=== PATIENT | female | born 1940 | race Caucasian/White ===

== ENCOUNTER → 2017-04-26 | Outpatient (CLI) | payer MEDICARE, OTHER ==
[~2017-04-26] MED LIST: CENTTAB PO; COUM1TAB19 PO; COUM2.5T11 PO; FISH1000 PO; FURO20TA2 PO; GLUC500C5 PO; KLOR1TAB69 PO; LEVO150T7 PO; PRAV40TA2 PO; PROBCAP4 PO; PROP225T PO; SPIR25TA2 PO; TYLE325T5 PO; VITA1CAP2 PO
--- NOTE | 2017-04-26 14:16 | REPMRS ---
Patient History The patient states she had a clinical breast exam in 04/2017. Family history of breast cancer in mother at age 50 or over. Benign stereotatic breast biopsy of the left breast, June 03, 2010. Digital Woman Screen Mammo: April 26, 2017 - Exam #: [id number] Bilateral CC and MLO view(s) were taken. Technologist: Alisa Shah, Technologist Prior study comparison: April 27, 2016, digital woman screen mammo performed at [facility]. August 06, 2014, digital woman screen mammo performed at [facility]. August 01, 2013, digital woman screen mammo performed at [facility]. FINDINGS: The breast tissue is heterogeneously dense. This may lower the sensitivity of mammography. There is a needle biopsy marker clip in the left breast. There is a pacemaker power plant projecting over the left axilla on the MLO view.There is a moderate amount of heterogeneously dense fibroglandular tissue which is fairly symmetric. There is no interval development of dominant mass, architectural distortion, or clustered microcalcification typical of malignancy. There has been no change in the appearance of the mammogram from the prior studies. ASSESSMENT: BI-RADS/ACR category 2 mammogram. Benign finding(s). Recommendation Routine screening mammogram of both breasts in 1 year (for women over age 40). This mammogram was interpreted with the aid of an FDA-approved computer-aided dectection system. Electronically Signed By: Sam Pickett MD 04/26/17 [id number]
== END ==
LOC: M WHC 12:40
PROVIDERS: ATTEND Nurse Practitioner Women's Health
DX: Z12.31 Encounter for screening mammogram for malignant neoplasm of breast (principal); Z92.89 Personal history of other medical treatment; Z80.3 Family history of malignant neoplasm of breast
CPT/HCPCS: G0202; G0463

== ENCOUNTER → 2020-05-05 | Outpatient (REF) | payer MEDICARE, OTHER ==
[~2020-05-05] MED LIST changes: -COUM2.5T11 PO; +COUM2.5T17 PO; +SPIR-10 PO; -SPIR25TA2 PO; +VITA-183 PO; -VITA1CAP2 PO
== END ==
LOC: M LAB REF 12:20
PROVIDERS: ATTEND Physician Assistant
DX: N39.0 Urinary tract infection, site not specified (principal)

== ENCOUNTER → 2021-04-03 | Outpatient (REF) | payer MEDICARE, OTHER | LOC: M LAB REF 15:49 | PROVIDERS: ATTEND Physician Assistant | DX: R30.0 Dysuria (principal) ==

== ENCOUNTER → 2021-06-06 | Outpatient (REF) | payer MEDICARE, OTHER | LOC: M WUC 19:02 | PROVIDERS: ATTEND Physician Assistant | DX: N39.0 Urinary tract infection, site not specified (principal) ==

== ENCOUNTER → 2021-07-01 | Outpatient (REF) | payer MEDICARE, OTHER | LOC: M LAB REF 11:26 | PROVIDERS: ATTEND Physician Assistant | DX: R30.0 Dysuria (principal) ==

== ENCOUNTER → 2021-07-26 | Outpatient (REF) | payer MEDICARE, OTHER | LOC: M WUC 18:08 | PROVIDERS: ATTEND Physician Assistant | DX: R30.0 Dysuria (principal) ==

== ENCOUNTER → 2022-05-06 | Outpatient (REF) | payer MEDICARE, OTHER | LOC: M WUC 15:51 | PROVIDERS: ATTEND Physician Assistant | DX: N39.0 Urinary tract infection, site not specified (principal) ==

== ENCOUNTER → 2022-06-06 | Outpatient (REF) | payer MEDICARE, OTHER | LOC: M WUC 17:39 | PROVIDERS: ATTEND Physician Assistant | DX: N39.0 Urinary tract infection, site not specified (principal) ==

== ENCOUNTER → 2022-07-25 | Outpatient (REF) | payer MEDICARE, OTHER | LOC: M WUC 19:18 | PROVIDERS: ATTEND Student in an Organized Health Care Education/Training Program | DX: N39.0 Urinary tract infection, site not specified (principal) ==

== ENCOUNTER → 2023-07-31 | Outpatient (REF) | payer MEDICARE, OTHER | LOC: M WUC 10:36 | PROVIDERS: ATTEND Student in an Organized Health Care Education/Training Program | DX: R30.0 Dysuria (principal) ==

== ENCOUNTER 2024-05-11 13:46 | Inpatient (IN) | payer MEDICARE, OTHER ==
[~2024-05-11] VITALS: Ht 157.5 cm; Wt 70.8 kg
[2024-05-11] MEDS ORDERED: MIRALAX *UNIT DOSE* 17GM PACKET PO PRN (15:40)
[2024-05-11] MEDS ORDERED: ONDANSETRON 4MG TAB PO PRN (15:40)
[2024-05-11] MEDS ORDERED: BISACODYL 10MG SUPP PR PRN (15:40)
[2024-05-11] MEDS ORDERED: SPIRONOLACTONE 25 MG TAB PO SCH (17:00)
[2024-05-11 19:15] VITALS: BP 159/69; TEMP 97.2; O2SAT 94
[2024-05-11] MEDS: APIXABAN 5 MG TAB (ELIQUIS) PO SCH (21:00)
[2024-05-11] MEDS: GABAPENTIN 100 MG CAP PO SCH (21:00)
[2024-05-11] MEDS: ACETAMINOPHEN 500 MG TAB PO SCH (21:00)
[2024-05-11] MEDS: DOCUSATE SODIUM 100MG CAPSULE PO SCH (21:45)
[2024-05-11] MEDS: SENNA 8.6 MG TAB (SENOKOT) PO SCH (21:45)
[2024-05-11] MEDS: oxyCODONE 5MG TAB PO PRN (21:45)
[2024-05-11] MEDS ORDERED: MELO15TA28 PO (23:00)
[2024-05-11] MEDS ORDERED: DILT120C89 PO (23:00)
[2024-05-11] MEDS ORDERED: ELIQ5TAB PO (23:00)
[2024-05-11] MEDS ORDERED: FURO40TA2 PO (23:00)
[2024-05-11] MEDS ORDERED: LEVO112T2 PO (23:00)
[2024-05-11] MEDS ORDERED: PROBCAP14 PO (23:00)
[2024-05-11] MEDS ORDERED: GABA-284 PO (23:00)
[2024-05-11] MEDS ORDERED: ACET1TAB55 PO (23:03)
[2024-05-11] MEDS ORDERED: CENT1TAB PO (23:03)
[2024-05-11] MEDS ORDERED: HOME MED LIST COMPLETE! XX SCH (23:05)
[2024-05-12] MEDS: RAMELTEON 8 MG TAB (ROZEREM) PO PRN (01:11)
[2024-05-12 04:00] VITALS: BP 120/69; TEMP 97; O2SAT 94
[2024-05-12 06:00] LABS: BASO % 0.2 % (0.0-1.0); EOS # 0.1 10^3/uL (0.0-0.5); EOS % 1.2 % (0.0-3.0); HEMATOCRIT 27.3 % (36.0-47.0); LYMPH # 2.1 10^3/uL (1.5-5.0); LYMPH % 19.4 % (24.0-44.0); MEAN CORPUSCULAR HEMOGLOBIN 29.5 pg (27.0-33.0); MEAN CORPUSCULAR VOLUME 89.5 fl (80.0-96.0); MONO # 0.8 10^3/uL (0.0-0.8); NEUTROPHILS # 7.7 10^3/uL (1.5-8.5); NEUTROPHILS % 70.7 % (36.0-66.0); PLATELET COUNT, AUTOMATED 326 10^3/uL (150-450); RED BLOOD COUNT 3.05 10^6/uL (4.00-5.40); WHITE BLOOD COUNT 10.9 10^3/uL (4.0-10.0)
[2024-05-12 06:23] LABS: ALBUMIN 2.1 G/DL (3.2-5.2); ALKALINE PHOSPHATASE 55 U/L (46-116); ALT/SGPT 33 U/L (7.0-40); AST/SGOT 45 U/L (<34); BILIRUBIN,TOTAL 1.5 MG/DL (0.3-1.2); BLOOD UREA NITROGEN 14 MG/DL (9-23); CALCIUM LEVEL 7.9 MG/DL (8.3-10.6); CARBON DIOXIDE LEVEL 28 MMOL/L (20-31); CHLORIDE LEVEL 103 MMOL/L (98-107); CREATININE FOR GFR 0.64 MG/DL (0.55-1.30); GLOMERULAR FILTRATION RATE > 60.0 (>32); GLUCOSE, FASTING 91 MG/DL (74-106); MAGNESIUM LEVEL 1.9 MG/DL (1.8-2.4); SODIUM LEVEL 136 MMOL/L (136-145); TOTAL PROTEIN 4.7 G/DL (5.7-8.2)
[2024-05-12 06:25] LABS: THYROID STIMULATING HORMONE 0.567 uIU/ML (0.55-4.78)
[2024-05-12] MEDS: LEVOTHYROXINE 112MCG TABLET (0.112MG) PO SCH (06:40)
[2024-05-12] MEDS ORDERED: FUROSEMIDE 20 MG TAB PO SCH (09:00)
[2024-05-12] MEDS: PANTOPRAZOLE 40MG TAB (PROTONIX) PO SCH (09:23)
[2024-05-12] MEDS: dilTIAZem 120MG **CD** CAPSULE PO SCH (09:23)
[2024-05-12] MEDS: VITAMIN D 1,000 INTERNATIONAL UNITS TABLET PO SCH (09:23)
[2024-05-12] MEDS: FUROSEMIDE 40 MG TAB PO SCH (09:24)
[2024-05-12] MEDS: POTASSIUM CHLORIDE 10MEQ SR TABLET PO SCH (09:24)
[2024-05-12] MEDS: PRAVASTATIN 20 MG TAB PO SCH (09:24)
[2024-05-12 12:00] VITALS: BP 124/60; TEMP 97.4; O2SAT 98
[2024-05-12 20:00] VITALS: BP 98/50; TEMP 97.3; O2SAT 96
[2024-05-13 04:00] VITALS: BP 109/58; TEMP 97; O2SAT 95
[2024-05-13 12:00] VITALS: BP 128/59; TEMP 98.2; O2SAT 99
[2024-05-13 19:47] VITALS: BP 119/64; TEMP 97.9; O2SAT 96
[2024-05-14 04:13] VITALS: BP 118/64; TEMP 97.1; O2SAT 92
[2024-05-14 11:19] LABS: HEMATOCRIT 31.7 % (36.0-47.0); HEMOGLOBIN 10.2 g/dl (12.0-15.5); MEAN CORPUSCULAR HEMOGLOBIN 29.9 pg (27.0-33.0); MEAN CORPUSCULAR HGB CONC 32.2 g/dl (32.0-36.5); PLATELET COUNT, AUTOMATED 394 10^3/uL (150-450); RED BLOOD COUNT 3.41 10^6/uL (4.00-5.40); WHITE BLOOD COUNT 12.8 10^3/uL (4.0-10.0)
[2024-05-14 11:37] LABS: BLOOD UREA NITROGEN 16 MG/DL (9-23); CALCIUM LEVEL 8.3 MG/DL (8.3-10.6); CARBON DIOXIDE LEVEL 24 MMOL/L (20-31); CHLORIDE LEVEL 104 MMOL/L (98-107); CREATININE FOR GFR 0.68 MG/DL (0.55-1.30); GLOMERULAR FILTRATION RATE > 60.0 (>32); GLUCOSE, FASTING 92 MG/DL (74-106); MAGNESIUM LEVEL 1.8 MG/DL (1.8-2.4); POTASSIUM SERUM 3.7 MMOL/L (3.5-5.1); SODIUM LEVEL 138 MMOL/L (136-145)
[2024-05-14 12:00] VITALS: BP 113/59; TEMP 97.3; O2SAT 99
[2024-05-14] MEDS: GABAPENTIN 400MG CAP PO SCH (20:05)
[2024-05-14 20:07] VITALS: BP 117/58; TEMP 97.9; O2SAT 94
[2024-05-15 04:41] VITALS: BP 126/58; TEMP 97.7; O2SAT 97
[2024-05-15 06:36] LABS: HEMATOCRIT 27.4 % (36.0-47.0); HEMOGLOBIN 8.9 g/dl (12.0-15.5); MEAN CORPUSCULAR HEMOGLOBIN 30.2 pg (27.0-33.0); MEAN CORPUSCULAR HGB CONC 32.5 g/dl (32.0-36.5); MEAN CORPUSCULAR VOLUME 92.9 fl (80.0-96.0); PLATELET COUNT, AUTOMATED 357 10^3/uL (150-450); RED BLOOD COUNT 2.95 10^6/uL (4.00-5.40); WHITE BLOOD COUNT 11.6 10^3/uL (4.0-10.0)
[2024-05-15 12:00] VITALS: BP 117/57; TEMP 97.7; O2SAT 96
[2024-05-15 20:00] VITALS: BP 109/56; TEMP 97.6; O2SAT 98
[2024-05-16 04:00] VITALS: BP 108/53; TEMP 97.3; O2SAT 94
[2024-05-16 06:46] LABS: HEMATOCRIT 28.2 % (36.0-47.0); HEMOGLOBIN 9.1 g/dl (12.0-15.5); MEAN CORPUSCULAR HEMOGLOBIN 29.8 pg (27.0-33.0); MEAN CORPUSCULAR HGB CONC 32.3 g/dl (32.0-36.5); MEAN CORPUSCULAR VOLUME 92.5 fl (80.0-96.0); PLATELET COUNT, AUTOMATED 392 10^3/uL (150-450); RED BLOOD COUNT 3.05 10^6/uL (4.00-5.40); WHITE BLOOD COUNT 12.5 10^3/uL (4.0-10.0)
[2024-05-16 07:04] LABS: BLOOD UREA NITROGEN 19 MG/DL (9-23); CALCIUM LEVEL 8.2 MG/DL (8.3-10.6); CARBON DIOXIDE LEVEL 23 MMOL/L (20-31); CHLORIDE LEVEL 109 MMOL/L (98-107); CREATININE FOR GFR 0.79 MG/DL (0.55-1.30); GLOMERULAR FILTRATION RATE > 60.0 (>32); GLUCOSE, FASTING 129 MG/DL (74-106); MAGNESIUM LEVEL 1.6 MG/DL (1.8-2.4); POTASSIUM SERUM 3.5 MMOL/L (3.5-5.1); SODIUM LEVEL 141 MMOL/L (136-145)
[2024-05-16] MEDS: SPIRONOLACTONE 12.5MG PER 1/2 TABLET PO SCH (08:15)
[2024-05-16] MEDS: MAGNESIUM OXIDE 400MG TAB (MAG-OX) PO SCH (11:06)
[2024-05-16] MEDS: CETIRIZINE (ZyrTEC) 10 MG TAB PO SCH (11:06)
[2024-05-16 12:00] VITALS: BP 109/59; TEMP 97.6; O2SAT 96
[2024-05-16 20:00] VITALS: BP 113/70; TEMP 97.6; O2SAT 95
[2024-05-17 04:00] VITALS: BP 109/55; TEMP 97.4; O2SAT 98
[2024-05-17 08:57] LABS: HEMOGLOBIN 9.7 g/dl (12.0-15.5); MEAN CORPUSCULAR HEMOGLOBIN 29.8 pg (27.0-33.0); MEAN CORPUSCULAR HGB CONC 32.3 g/dl (32.0-36.5); MEAN CORPUSCULAR VOLUME 92.3 fl (80.0-96.0); PLATELET COUNT, AUTOMATED 398 10^3/uL (150-450); RED BLOOD COUNT 3.25 10^6/uL (4.00-5.40); WHITE BLOOD COUNT 9.8 10^3/uL (4.0-10.0)
[2024-05-17 09:01] VITALS: BP 109/55
[2024-05-17 09:17] LABS: BLOOD UREA NITROGEN 18 MG/DL (9-23); CALCIUM LEVEL 8.5 MG/DL (8.3-10.6); CARBON DIOXIDE LEVEL 24 MMOL/L (20-31); CHLORIDE LEVEL 107 MMOL/L (98-107); CREATININE FOR GFR 0.73 MG/DL (0.55-1.30); GLOMERULAR FILTRATION RATE > 60.0 (>32); GLUCOSE, FASTING 156 MG/DL (74-106); MAGNESIUM LEVEL 1.7 MG/DL (1.8-2.4); POTASSIUM SERUM 3.3 MMOL/L (3.5-5.1); SODIUM LEVEL 139 MMOL/L (136-145)
[2024-05-17 12:00] VITALS: BP 118/67; TEMP 98.2; O2SAT 90
[2024-05-17] MEDS: MAG SULF 1GM/100ML (MAG RUN) 1 GM in IV 1 EA IV STA (12:05)
[2024-05-17] MEDS ORDERED: GABA-284 PO (12:40)
[2024-05-17] MEDS ORDERED: VITAD1000T PO (12:40)
[2024-05-17] MEDS ORDERED: DILT120C89 PO (12:40)
[2024-05-17] MEDS ORDERED: MAGN400T2 PO (12:40)
[2024-05-17] MEDS ORDERED: POTA-136 PO (12:40)
== END 2024-05-17 14:00 | disposition home health service (06) | DRG 560 ==
LOC: M PM&R 19:06
PROVIDERS: ADMIT Student in an Organized Health Care Education/Training Program; ATTEND Student in an Organized Health Care Education/Training Program
DX: S72.012D Unspecified intracapsular fracture of left femur, subsequent encounter for closed fracture with routine healing (principal); I50.32 Chronic diastolic (congestive) heart failure; I48.91 Unspecified atrial fibrillation; Z79.01 Long term (current) use of anticoagulants; G62.9 Polyneuropathy, unspecified; I27.20 Pulmonary hypertension, unspecified; I36.0 Nonrheumatic tricuspid (valve) stenosis; Z96.642 Presence of left artificial hip joint; Z95.0 Presence of cardiac pacemaker; E78.5 Hyperlipidemia, unspecified; E03.9 Hypothyroidism, unspecified; M81.0 Age-related osteoporosis without current pathological fracture; R26.89 Other abnormalities of gait and mobility; G89.18 Other acute postprocedural pain; R33.9 Retention of urine, unspecified; D72.829 Elevated white blood cell count, unspecified; E83.42 Hypomagnesemia; Z88.8 Allergy status to other drugs, medicaments and biological substances; Z79.899 Other long term (current) drug therapy; K59.00 Constipation, unspecified

== ENCOUNTER → 2024-05-23 | Outpatient (REF) | payer MEDICARE, OTHER ==
[~2024-05-23] MED LIST changes: +ACET1TAB55 PO; +CENT1TAB PO; +DILT120C89 PO; +ELIQ5TAB PO; +FURO40TA2 PO; +GABA-284 PO; +LEVO112T2 PO; +MAGN400T2 PO; +MELO15TA28 PO; +POTA-136 PO; +PROBCAP14 PO; +VITAD1000T PO
== END ==
LOC: M LAB REF 12:28
PROVIDERS: ATTEND Nurse Practitioner Family
DX: E03.9 Hypothyroidism, unspecified (principal)

== ENCOUNTER → 2024-06-11 | Outpatient (CLI) | payer MEDICARE, OTHER | LOC: M SOG 07:53 | PROVIDERS: ATTEND Physician Assistant | DX: Z47.89 Encounter for other orthopedic aftercare (principal); M25.552 Pain in left hip; M79.605 Pain in left leg ==

== ENCOUNTER → 2024-07-09 | Outpatient (CLI) | payer MEDICARE, OTHER | LOC: M SOG 07:52 | PROVIDERS: ATTEND Physician Assistant | DX: S72.002D Fracture of unspecified part of neck of left femur, subsequent encounter for closed fracture with routine healing (principal); M17.12 Unilateral primary osteoarthritis, left knee ==